=== PATIENT | female | born 1950 | race Caucasian/White ===

== ENCOUNTER 2022-01-11 05:50 | Day surgery (SDC) | payer MEDICARE, OTHER ==
[2022-01-11] MEDS ORDERED: XYLOCAINE 1% HCL 20 ML MDV ONE (06:30)
[2022-01-11] MEDS ORDERED: BUPIVACAINE 0.5% VIAL IJ ONE (06:30)
[2022-01-11] MEDS ORDERED: CLINDAMYCIN-D5W 900 MG/50 ML*** 900 MG/50 ML BAG IV ONE (06:46)
[2022-01-11] MEDS ORDERED: Lactated Ringers 1,000 ML IV SCH (07:00)
[2022-01-11] MEDS ORDERED: CLINDAMYCIN-D5W 900 MG/50 ML*** 900 MG/50 ML BAG IV SCH (07:00)
[2022-01-11] MEDS ORDERED: Xylocaine-Mpf 2% 5 Ml Vial ONE (07:22)
[2022-01-11] MEDS ORDERED: Zemuron 100 MG/10 ML ONE (07:22)
[2022-01-11] MEDS ORDERED: BRIDION 200MG/2ML IV ONE (07:22)
[2022-01-11] MEDS ORDERED: TORAdol 30 mg Injection ONE (07:22)
[2022-01-11] MEDS ORDERED: Decadron 4 MG INJ ONE ×2 (07:22→10:59)
[2022-01-11] MEDS ORDERED: Zofran 4 MG/2 ML VIAL ONE (07:22)
[2022-01-11] MEDS ORDERED: SUBLIMAZE 100 MCG/2 ML ONE ×2 (07:22→10:12)
[2022-01-11] MEDS ORDERED: DIPRIVAN 200 MG/20 ML IV ONE (07:22)
[2022-01-11] MEDS ORDERED: PHENYLEPHRINE HCL ONE (07:39)
[2022-01-11] MEDS ORDERED: Ephedrine Sulfate 50 MG/ML ONE (08:04)
[2022-01-11] MEDS ORDERED: Lactated Ringers 1,000 ML IV ONE ×2 (10:14→12:37)
[2022-01-11] MEDS ORDERED: Marcaine 0.5%/Epinephrine 10 ML ONE (10:59)
--- NOTE | 2022-01-11 11:58 | XRAY ---
Indication: Right foot osteotomy, arthrodesis, and hammertoe repair. Intraoperative fluoroscopy provided for 2 minutes 36 seconds. 26 digital spot images submitted for interpretation ultimately demonstrates 1st MTP fusion with intact plate/screws, 2nd tarsometatarsal fusion with intact hardware, 2nd metatarsal head osteotomy with intact screw, and 3rd/4th toe fusion with intact screws. Correlate with intraoperative findings/report.
[2022-01-11 13:20] LABS: Appearance CLEAR (CLEAR); Bilirubin NEGATIVE (NEGATIVE); Blood NEGATIVE Ery/ul (0-5); Glucose NEGATIVE (NEGATIVE); Ketones NEGATIVE (NEGATIVE); Leukocyte Esterase NEGATIVE (NEGATIVE); Mucus SLIGHT /HPF (NEGATIVE); Nitrite NEGATIVE (NEGATIVE); Protein,Urine Dip NEGATIVE (Negative); RBC 0-2 /HPF (0-2); Urobilinogen NEGATIVE mg/dL (0-1); WBC 0-2 /HPF (0-5)
[2022-01-11 13:42] VITALS: BP 126/75
[2022-01-11 14:06] VITALS: PULSE 88; O2SAT 96
--- NOTE | 2022-01-11 14:47 | OP ---
SURGERY DATE/TIME: 01/11/2022 0732 PREOPERATIVE DIAGNOSES: 1) Right foot pain. 2) Hallux abductovalgus right foot. 3) Hammertoe to digits 2, 3, 4 and 5. 4) Elongated second metatarsal right foot. 5) Tarsometatarsal joint osteoarthritis second joint. POSTOPERATIVE DIAGNOSES: 1) Right foot pain. 2) Hallux abductovalgus right foot. 3) Hammertoe to digits 2, 3, 4 and 5. 4) Elongated second metatarsal right foot. 5) Tarsometatarsal joint osteoarthritis second joint. 6) Osteochondral lesion to second metatarsal head. PROCEDURES: 1) First metaphalangeal joint fusion or arthrodesis. 2) Hammertoe correction with proximal interphalangeal joint arthrodesis to digits 2, 3 and 4. 3) Derotational arthroplasty fifth digit. 4) Second tarsometatarsal joint arthrodesis. 5) Osteochondral microfracture of second metatarsophalangeal joint head. 6) Gianfranco osteotomy of second metatarsal. SURGEON: Bennett Juárez DPM. MACHINE TOOL REBUILDER: None. ANESTHESIA: General plus a postoperative regional block. See anesthesia report for details. HEMOSTASIS: Ankle tourniquet set to 250 mm of Mercury for 120 minutes with a 15 minute down time and an additional 45 minutes. ESTIMATED BLOOD LOSS: Less than 30 cc. MATERIALS: First metatarsophalangeal fusion plate right with a 3.4 mm headless compression interfragmentary screw measuring 32 mm with Cammie [employer], PEEK hammertoe implant, a 2.5 mm x 26 mm MAX VPC screw, another 2.5 x 22 mm MAX VPC headless compression screw and Imcor TMT implant, 3-0 Nylon, 4-0 Monocryl. INJECTABLES: See anesthesia report for details. INDICATION FOR SURGERY: Rashida is a very pleasant 71-year-old female who presented to my clinic with complaint of significant pain with weightbearing secondary to her bunion deformity as well as pain with ambulation underneath her second metatarsophalangeal joint. With clinical exam, this was demonstrated to be partially due to the fact that she has a plantar plate tear along with instability along the first ray resulting in primary ambulation off of the second metatarsophalangeal joint. The patient has had surgery in the past for this by a local physician who attempted surgery on her however was unsuccessful in correcting the bunion or the hammer toes. Since then the patient has been in a significant amount of pain with ambulation. Discussion with patient as to outcome expectations being that this is a revision were kept realistic although the goal of the procedure planned was to provide for pain-free ambulation as possible. The patient understands all risks, benefits and complications of the surgical intervention including but not limited to infection, hematoma, seroma, delayed bone healing, nonbone healing, possibility of need for surgical intervention at a later date and possibility of under correction of deformity. She understands all of this and wishes to proceed with surgical intervention at this time. Vascular studies were obtained prior to procedure being that there will be multiple incisions in relatively close proximity and the patient is again adequate for proceeding with surgical intervention at this time. DESCRIPTION OF PROCEDURE AND FINDINGS: The patient is brought into the OR and placed on the OR table in the supine position. At this time, general anesthesia was administered and the patient was sedated. The right lower extremity was then prepped and draped in typical sterile fashion. At this time, attention was directed to the first ray where a linear incision was made at the medial aspect of the first metaphalangeal joint just medial to the extensor tendon, which was subluxed medially secondary to the significant contracture. At this time, dissection was carried down to the capsule being careful not to damage any neurovascular structures using a combination of blunt and sharp dissection. At this time, capsular incision was made around the first metatarsophalangeal joint where a significant spur at the medial aspect of the first metaphalangeal joint was resected off utilizing a sagittal saw. Following this cup and conical reamers were utilized to denude the cartilage at the first metaphalangeal joint. Copious amounts of sterile saline were utilized to flush the site. At this time, the subchondral plate was then fenestrated utilizing a 2.0 mm drill bit in order to increase vascularity and promote arthrodesis through this site. At this time, the dorsal locking plate was trialed and appeared to be adequate. At this time, temporary fixation for the first metaphalangeal joint was appreciated. A 3.4 mm headless compression interfragmentary screw of 32 mm was utilized to gain compression through the first metaphalangeal joint site. Following this, the distal aspect of the locking plate was fixated utilizing a combination of locking and nonlocking screws. Following this, temporary fixation was removed and eccentrically interfrag nonlocking screw was utilized the maintain complete compression through the first metaphalangeal joint fusion site alternating between the eccentric and the interfragmentary screw was achieved at this time in order to gain significant compression. The remaining screw holes were filled at this time with locking screws at the first metaphalangeal joint. Interfragmentary screw at this time was removed. At this time, attention was directed to the second digit where a Gianfranco osteotomy was first attempted. At this time encountering the second metatarsal head, there appeared to be significant osteochondral defect where with the assistance of her decided to proceed with microfracture of the osteochondral defect. At this time, a 1.6 mm drill was utilized to drill four holes into the extremely large osteochondral defect at the metatarsal head to promote fibrocartilaginous growth. At this time, a Gianfranco osteotomy was then performed pushing the metatarsal head posteriorly resecting the dorsal lip of the second metatarsal head cartilage and fixating with a 2.4 mm headed cannulated partially threaded screw this was checked under fluoroscopy and deemed to be in adequate position. Following this, a PEEK Nextra hammer toe anchor was utilized to fixate the proximal interphalangeal joint of the second digit after cutting the joint utilizing a sagittal saw. Following this, the joints for digits 3, 4 and 5 were prepped in a similar fashion removing the proximal phalangeal head and the base of the middle phalanx. Following this, a 2.5 mm x 26 mm MAX VPC screw was introduced from distal to proximal in the third and a 22 mm MAX VPC screw was introduced from distal to medial to the third and fourth digits respectively. At this time, a derotational arthroplasty was performed of the fifth digit resecting the head of the proximal phalanx of the fifth digit. These were then coapted utilizing 4-0 Monocryl and 3-0 Nylon, 4-0 Monocryl and a buried interrupted-type fashion and then 3-0 Nylon utilized to coapt the skin edges in a horizontal mattress-type fashion. At this time attention was directed to the posterior aspect of the second tarsometatarsal joint where incision was made directly dorsal over the second tarsometatarsal joint. At this time, the joint line was identified. The Imcor was placed in the central aspect under fluoroscopy of the intermediate cuneiform. Following this, the jig was utilized to gain access to the joint, which was prepped utilizing a combination of rongeur, curettes, osteotomes. Flushed of any remaining cartilage and then fenestrated utilizing 2.0 mm drill. Following this two headless compression screws were utilized to gain stability and compression to the joint this was checked under fluoroscopy and deemed to be adequate. The incisions were then flushed with copious amounts of sterile saline and closed utilizing 4-0 Monocryl and 3-0 Nylon in a simple interrupted and horizontal mattress-type fashion respectively. Tourniquet was let down at this time. A dressing consisting of Betadine, Adaptic, 4x4, Kerlix and JEANETH was applied to the right foot to the level of the calf. Following closure and dressing, a postoperative regional block was provided. See anesthesia report for details. Following this, the patient was returned to the postoperative anesthesia care unit with vital signs stable and vascular status intact. The patient handled the procedure without complication and returned to recovery room. Patient orders as indicated in the patient's chart.
--- NOTE | 2022-01-14 15:21 | XRAY ---
2 minutes and 36 secs fluoroscopy time in surgery for osteotomy, arthrodesis, and hammertoe repair right foot.
== END 2022-01-11 14:35 | disposition home or self-care (01) ==
LOC: SDC 05:50
PROVIDERS: ATTEND Podiatrist Foot & Ankle Surgery
DX: M20.11 Hallux valgus (acquired), right foot (principal); M79.671 Pain in right foot; M20.41 Other hammer toe(s) (acquired), right foot; M19.071 Primary osteoarthritis, right ankle and foot; Z79.899 Other long term (current) drug therapy
CPT/HCPCS: 01922; 28005; 28285; 28308; 28740; 28750; 73630; 76000; 76937; 76942; 81001; 87086; C1713; 64450; J1100; J1885; J2370; J2405; J2704; J3010

== ENCOUNTER 2022-03-01 05:56 | Day surgery (SDC) | payer MEDICARE, OTHER ==
[2022-03-01] MEDS ORDERED: Lactated Ringers 1,000 ML IV SCH (06:30)
[2022-03-01] MEDS ORDERED: BUPIVACAINE 0.5% VIAL IJ ONE (06:32)
[2022-03-01] MEDS ORDERED: XYLOCAINE 1% HCL 20 ML MDV ONE (06:32)
[2022-03-01 06:43] LABS: ALBUMIN 3.8 g/dL (3.5-5.0); ALKALINE PHOSPHATASE 118 U/L (38-126); BLOOD UREA NITROGEN 13 mg/dL (7-17); CHLORIDE 107 mmol/L (98-107); Calcium 8.8 mg/dL (8.4-10.2); Carbon Dioxide 26 mmol/L (22-30); Creatinine 1 0.57 mg/dL (0.52-1.04); EST GLOMERULAR FILTRATION RATE > 60.0 ML/MIN; Glucose 97 mg/dL (74-106); Potassium 3.3 mmol/L (3.5-5.1); SGOT/AST 21 U/L (14-36); SGPT/ALT 15 U/L (0-35); SODIUM 143 mmol/L (137-145); Total Protein 7.3 g/dL (6.3-8.2)
[2022-03-01] MEDS ORDERED: SUBLIMAZE 100 MCG/2 ML ONE (06:52)
[2022-03-01] MEDS ORDERED: Zemuron 100 MG/10 ML ONE (06:52)
[2022-03-01] MEDS ORDERED: BRIDION 200MG/2ML IV ONE (06:52)
[2022-03-01] MEDS ORDERED: DIPRIVAN 200 MG/20 ML IV ONE (06:52)
[2022-03-01] MEDS ORDERED: TORAdol 30 mg Injection ONE (06:52)
[2022-03-01] MEDS ORDERED: Decadron 4 MG INJ ONE (06:52)
[2022-03-01] MEDS ORDERED: Zofran 4 MG/2 ML VIAL ONE (06:52)
[2022-03-01] MEDS ORDERED: Versed 2 MG/2 ML Injection ONE (06:52)
[2022-03-01] MEDS ORDERED: Xylocaine-Mpf 2% 5 Ml Vial ONE (06:52)
[2022-03-01] MEDS ORDERED: Ketamine HCl 50 MG/ML ONE (06:53)
[2022-03-01] MEDS ORDERED: CLINDAMYCIN-D5W 900 MG/50 ML*** 900 MG/50 ML BAG IV STA (06:59)
[2022-03-01] MEDS ORDERED: Ephedrine Sulfate 50 MG/ML ONE (07:22)
--- NOTE | 2022-03-01 09:18 | XRAY ---
Indication: Right foot hardware replacement. Intraoperative fluoroscopy provided for 1 minute 10 seconds. 9 digital spot images submitted for interpretation ultimately demonstrates anterior fusion plate/screws traversing 1st metatarsal/phalanx. Additional orthopedic screws seen of 2nd tarsometatarsal/metatarsal head and 3rd/4th phalanges. Correlate with intraoperative findings/report.
--- NOTE | 2022-03-01 10:07 | XRAY ---
1 minute and 10 seconds fluoroscopy time in surgery for hardware replacement of right foot.
[2022-03-01 10:21] VITALS: BP 130/76; PULSE 81; O2SAT 92
--- NOTE | 2022-03-01 10:21 | OP ---
SURGERY DATE/TIME: 03/01/2022 0707 PREOPERATIVE DIAGNOSES: 1) Pain right foot. 2) Painful retained hardware. 3) Fracture first metatarsal. POSTOPERATIVE DIAGNOSES: 1) Pain right foot. 2) Painful retained hardware. 3) Fracture first metatarsal. PROCEDURES: 1) Removal of hardware right foot. 2) Open reduction internal fixation of first metatarsal. SURGEON: Bennett Juárez DPM. FARM EQUIPMENT OPERATOR: None. ANESTHESIA: General plus a postoperative block. See injectables for details. HEMOSTASIS: Thigh tourniquet set to 350 mm of Mercury for approximately 60 minutes. ESTIMATED BLOOD LOSS: Less than 10 cc. INJECTABLES: 26 cc of 1:1 mixture of 1% lidocaine plain and 0.5% Marcaine plain injected in a Palma block-type fashion around the first metatarsal. INDICATION FOR PROCEDURE: Rashida is a very pleasant 71-year-old female who recently underwent surgical intervention for correction of a bunion as well as a hammer toe. The patient proceeded without complication up until approximately one week ago where she was around the fourth or fifth week postoperative and weightbearing and felt a crunch in her foot. Over the next several days she experienced some degree of pain and noticed the toe was turning inward towards the outside of her body. On patient's six week follow up, the patient had x-rays and was walking with a limp. The x-rays demonstrated a periprosthetic fracture at the site of the eccentric drill hole of the first metatarsophalangeal joint fusion. The first metatarsophalangeal joint arthrodesis was successful and there is significant evidence of union at this time. However, because it is the first metatarsal and responsible for weightbearing, the patient was advised that leaving this fracture alone could potentially lead to abnormalities in gait and was advised to proceed with surgical intervention. The patient was allowed to make this decision on her own and she decided to proceed with surgical intervention at this time. All risks, benefits and complications of the surgical intervention were identified and the patient was notified of the risks. She understands all of this and wishes to proceed. No guarantees were provided as to the outcome of the procedure. Unfortunately, complications do happen. It is with that plenty of time she was allowed to ask questions to which were answered to the patient's apparent satisfaction. DESCRIPTION OF PROCEDURE AND FINDINGS: The patient was brought into the OR and placed on the OR table in the supine position. Following general anesthesia a well-padded thigh tourniquet was applied to the patient's right thigh. The right lower extremity was prepped and draped in the typical sterile fashion. At this time an Esmarch was utilized to exsanguinate the leg while the tourniquet was set to 350 mm of Mercury. At this time the tourniquet was inflated. Attention was directed to the dorsal aspect of the right foot where the previous incision was identified and dissection took place around this metatarsal around the extensor tendon and protecting it and retracting it out laterally exposing the Cammie ALPS first metatarsophalangeal plate. The screws were removed at this time utilizing the star distribution driver exposing the fracture at the proximal aspect of the metatarsal plate footprint. At this time the fusion site was assessed and deemed to be healed at this time. Following this, an ALPS six hole composite Cammie plate was introduced dorsally and temporarily fixated this was checked under fluoroscopy and deemed to be in adequate position. Some manipulation of the plate was performed in order to sit better in the abnormal contouring of the first metatarsal. Following this a combination of locking and nonlocking screws were utilized to bring the plate down to the bone this was checked under fluoroscopy and deemed to be in excellent position and the fracture site was spanned appropriately. At this time copious amounts of sterile saline were utilized to flush the surgical site. 4-0 Monocryl was utilized to coapt the subcutaneous skin edges in simple interrupted buried-type fashion and then the skin was coapted utilizing a horizontal mattress-type fashion stitch utilizing 3-0 Nylon. Following this dressing consisting of Betadine, Adaptic, 4x4, Kerlix and JEANETH was applied to the right foot. The patient was placed in a medium CAM walker. The patient was then reversed from anesthesia and returned to the postoperative anesthesia care unit with vital signs stable and vascular status intact. The patient handled the procedure as well as the anesthesia without complications. Postoperative orders as indicated in the patient's discharge chart.
== END 2022-03-01 10:36 | disposition home or self-care (01) ==
LOC: SDC 05:56
PROVIDERS: ATTEND Podiatrist Foot & Ankle Surgery
DX: S92.314A Nondisplaced fracture of first metatarsal bone, right foot, initial encounter for closed fracture (principal); M79.671 Pain in right foot; T84.84XA Pain due to internal orthopedic prosthetic devices, implants and grafts, initial encounter
CPT/HCPCS: 20680; 28615; 36415; 73620; 76000; 80053; 93005; J1100; J1885; J2250; J2405; J2704; J3010

== ENCOUNTER 2022-09-17 09:07 | Day surgery (SDC) | payer MEDICARE, OTHER ==
[2022-09-17] MEDS ORDERED: Marcaine Mpf 0.5% Vial 30 Ml IV ONE (09:08)
[2022-09-17] MEDS ORDERED: Lactated Ringers 1,000 ML IV ONE (09:24)
[2022-09-17] MEDS: Lactated Ringers 1,000 ML IV SCH (09:27)
[2022-09-17] MEDS: CLINDAMYCIN-D5W 900 MG/50 ML*** 900 MG/50 ML BAG IV SCH (09:30)
[2022-09-17] MEDS ORDERED: Sodium Chloride 3 ML UD NEBULES IH ONE (10:10)
[2022-09-17] MEDS ORDERED: Xopenex 1.25 MG/0.5 ML UD NEBULE IH ONE (10:10)
[2022-09-17] MEDS: Xopenex 1.25 MG/0.5 ML UD NEBULE IH ONE (10:17)
[2022-09-17] MEDS ORDERED: SUBLIMAZE 100 MCG/2 ML ONE (10:45)
[2022-09-17] MEDS ORDERED: DIPRIVAN 200 MG/20 ML IV ONE (10:45)
[2022-09-17] MEDS ORDERED: Decadron 4 MG INJ ONE ×2 (10:45→10:47)
[2022-09-17] MEDS ORDERED: Zofran 4 MG/2 ML VIAL ONE (10:45)
[2022-09-17] MEDS ORDERED: Amidate 20 MG/10 ML IV ONE (10:57)
[2022-09-17] MEDS ORDERED: BRIDION 200MG/2ML IV ONE (11:30)
[2022-09-17] MEDS ORDERED: TORAdol 30 mg Injection ONE (11:31)
[2022-09-17] MEDS ORDERED: XYLOCAINE 1% HCL 20 ML MDV ONE (11:34)
--- NOTE | 2022-09-17 12:55 | XRAY ---
35 seconds fluoroscopy time in surgery for hardware removal and exostosis of the right foot.
--- NOTE | 2022-09-17 13:01 | XRAY ---
Indication: Right foot hardware removal. Intraoperative fluoroscopy provided for 35 seconds. 5 digital spot images submitted for interpretation and compared to right foot exam August 27, 2022 demonstrates removal 1st MTP fixation plate/screws with single remaining screw. Also removal 3rd toe screw. Correlate with intraoperative findings/report.
[2022-09-17 13:57] VITALS: O2SAT 94
[2022-09-17 14:11] VITALS: BP 132/72; PULSE 82
--- NOTE | 2022-09-18 09:59 | OP ---
SURGERY DATE/TIME: 09/17/2022 1059 PREOPERATIVE DIAGNOSES: 1) Painful retained hardware x2. 2) Exostosis third digit right foot. POSTOPERATIVE DIAGNOSES: 1) Painful retained hardware x2. 2) Exostosis third digit right foot. PROCEDURES: 1) Hardware removal two separate sites. 2) Exostectomy third toe. SURGEON: Bennett Juárez DPM. ANALYTICAL TECH: None. ANESTHESIA: General plus a postoperative local block. See injectables for details. HEMOSTASIS: Ankle tourniquet set to 250 mm of Mercury for 15 total tourniquet minutes. MATERIALS: 4-0 Monocryl, 3-0 Nylon. INJECTABLES: 30 cc of 1:1 mixture of 1% lidocaine plain and 0.5% bupivacaine plain injected in a Palma block-type fashion as well as a third digital block to the right foot. INDICATION FOR SURGERY: Rashida is a very pleasant 72-year-old female who unfortunately has had bad luck with foot surgery in the past. She came to me for a surgical consultation. For the most part we took care of the majority of her issue and she was happy up until our six week follow up appointment where the patient noticed that there were changes to the shape of her foot and some increased pain. The patient had x-rays taken identifying that there had been a fracture just proximal to the plate of the arthrodesis site on first metatarsophalangeal, this changed the way that the patient walked and she developed some pain underneath the third digit as well. As a result, we did return to the OR to span the fracture with a larger plate. At this time, the patient did have continued healing. There were some positional changes to the surgical site. However, the plate had become irritating over the last several months. The patient requested that we address a prominence at the plantar aspect of the third digit as well so we obliged to proceed with removal of the exostosis at the plantar aspect of the proximal phalanx of the third digit to the right foot as well. The patient understands all risks, benefits and complications of the surgical intervention including but not limited to infection, hematoma, seroma, possibility of nonbone healing, possibility of further complications and possible need for surgical intervention at a later date. The patient understands all of these risks and wishes to proceed at this time. DESCRIPTION OF PROCEDURE AND FINDINGS: The patient is brought into the OR and placed on the OR table in the supine position. At this time general anesthesia was administered. A well-padded ankle tourniquet was applied and the right lower extremity was prepped and draped in the typical sterile fashion. At this time the tourniquet was inflated. Incision was made in line with the previous incision site. The hardware over the first metatarsophalangeal joint and extending down the proximal base of the first metatarsal was removed in toto. At this time the site was flushed with copious amounts of sterile saline. Attention then was directed to the third digit where a K-wire was utilized to thread the 2.5 mm VPC screw and remove this from the third digit. Following this a Skylar bur was utilized to plane down the bone at the base of the proximal phalanx that had caused her some irritation until it was plane with the surface surrounding it. At this time copious amounts of sterile saline were utilized to flush both of the surgical sites once again. Monocryl was utilized to perform subcutaneous closure of the skin to both sites and 3-0 Nylon was then utilized to perform skin closure in horizontal mattress-type fashion to both surgical sites. At this time a dressing consisting of Betadine, Adaptic, 4x4, Kerlix and JEANETH were applied to the patient's right foot. Prior to the dressings going on, injection consisting of a 1:1 mixture of 1% lidocaine plain and 0.5% bupivacaine plain was injected in a Palma block-type fashion as well as a third digital block to the patient's right foot. After dressings were applied, the patient was reversed from anesthesia and returned to the postoperative anesthesia care unit with vital signs stable and vascular status intact. The patient handled the anesthesia as well as the procedure without significant complication. Postoperative orders as indicated in the patient's discharge chart.
== END 2022-09-17 14:05 | disposition home or self-care (01) ==
LOC: SDC 09:07
PROVIDERS: ATTEND Podiatrist Foot & Ankle Surgery
DX: T84.84XA Pain due to internal orthopedic prosthetic devices, implants and grafts, initial encounter (principal); M89.8X7 Other specified disorders of bone, ankle and foot
CPT/HCPCS: 73630; 76000; 94640; J1100; J1885; J2405; J2704; J3010; A9270-GY